=== PATIENT | female | born 1985 | race Asian ===

== ENCOUNTER 2023-11-28 19:55 | Inpatient (IN) | payer OTHER ==
[~2023-11-28] VITALS: Ht 152.4 cm; Wt 71.4 kg
--- NOTE | 2023-11-28 20:00 | NUR ---
2000 G1L0 40.2 WEEKS GEST TO LR4 WITH C/O CONTRACTIONS FOR SEVERAL DAYS BUT BECOMING MORE REGULAR AND STRONGER AT 0700 TODAY. EFM ON. CONTRACTION PATTERN IRREGULAR WITH 120 SECOND CONTRACTION NOTED EVERY 15 WITH 70 SECOND LESS INTENSE CONTRACTIONS NOTED IN BETWEEN THE 120 SECOND CONTRACTIONS AND THEN SM 20 SECOND CONTRACTIONS NOTED IN BETWEEN THOSE. SVE VERY POSTERIOR AND PRESENTING PART HIGH AND NOT ENGAGED /HIGH. BOW INTACT. PT UNDERSTANDS SOME [place] AND SPEAKS VERY LITTLE. UNDERSTANDS ENSLISH AND INTERPRETS FOR PT. ADM ASSESSMENT COMPLETED.
[2023-11-28] MEDS ORDERED: LR 1,000 ML IV PRN (20:15)
[2023-11-28 20:20] VITALS: BP 139/91; PULSE 93; TEMP 98.1
[2023-11-28] MEDS ORDERED: PRENATA1 CTB PO (20:54)
[2023-11-28 21:25] VITALS: BP 117/86; PULSE 90
--- NOTE | 2023-11-28 21:30 | NUR ---
2129 REPEAT SVE WITH /HIGH. CONTRACTION PATTERN REMAINS SAME 2139 DR LISA NOTIFIED AND ORDER RECEIVED
[2023-11-28 22:00] VITALS: BP 130/89; PULSE 93
[2023-11-28] MEDS ORDERED: LR & Oxytocin 500 ML IV SCH (22:00)
[2023-11-28] MEDS ORDERED: LR 1,000 ML IV SCH (22:00)
--- NOTE | 2023-11-28 22:00 | NUR ---
2200 BLOOD SUGAR 95 2220 IV STARTED IN RIGHT HAND.
[2023-11-28 22:35] LABS: BASO % 0.3 % (0.0-2.0); EOS # 0.1 K/mm3 (0.0-0.7); EOS % 0.7 % (0.0-4.0); GRAN # 8.4 K/mm3 (1.4-6.5); GRAN % 76.5 % (42.2-75.2); HEMATOCRIT 40.6 % (37.0-47.0); HEMOGLOBIN 13.5 g/dl (12.5-16.0); LYMPH # 1.7 K/mm3 (1.2-3.4); LYMPH % 15.4 % (20.0-51.0); MEAN CELL VOLUME 91 fl (80.0-100.0); MEAN CORPUSCULAR HEMOGLOBIN 30 pg (27-31); MEAN CORPUSCULAR HGB CONC 33 g/dl (33.0-37.0); MEAN PLATELET VOLUME 11.4 fl (7.4-10.4); MONO # 0.7 K/mm3 (0.1-0.6); MONO % 6.1 % (1.7-9.3); PLATELET COUNT 204 K/mm3 (130-400); RED BLOOD COUNT 4.47 M/mm3 (4.10-5.30); REDCELL DISTRIBUTION WIDTH-CV 14.6 % (11.5-14.5)
[2023-11-28 22:40] VITALS: BP 127/86; PULSE 83
[2023-11-28 22:54] LABS: BILIRUBIN,TOTAL 0.6 mg/dL (0.2-1.2); CALCIUM 9.8 mg/dL (8.4-10.2); CREATININE, serum 0.65 mg/dL (0.57-1.11); POTASSIUM 4.2 mEq/L (3.5-4.5); TOTAL PROTEIN 7.1 g/dl (6.2-8.1)
[2023-11-28 23:30] VITALS: BP 138/91; PULSE 87
[2023-11-29] VITALS (54 sets, daily range): BP systolic 91–135; BP diastolic 52–92; PULSE 73–111; TEMP 97.3–99.2
--- NOTE | 2023-11-29 | NUR ---
0000 AC DONE = 91. REQUESTING EPIDURAL. [facility]F CALLED
[2023-11-29] MEDS ORDERED: ROPivacaine PF 0.2% 200 ML IV ONE (00:21)
--- NOTE | 2023-11-29 00:30 | NUR ---
0030 SITTING UP FOR EPID PLACEMENT. SEE ANESTHESIA RECORD FOR MORE INFORMATION.
[2023-11-29] MEDS ORDERED: diphenhydrAMINE 50 MG/ML 1 ML VIAL IV PRN (01:00)
[2023-11-29] MEDS ORDERED: Ondansetron 4 MG/2 ML VIAL IV PRN (01:00)
[2023-11-29] MEDS ORDERED: Naloxone 0.4 MG/ML VIAL IV PRN ×2 (01:00→13:45)
[2023-11-29] MEDS ORDERED: diphenhydrAMINE 25 MG CAP PO PRN (01:00)
[2023-11-29] MEDS ORDERED: ePHEDrine 50 MG/10 ML VIAL IV PRN (01:00)
--- NOTE | 2023-11-29 02:00 | NUR ---
BLOOD SUGAR 78. STATES HER BLOOD SUGAR DOES NOT GET BELOW 90 USUALLY. HE STATES SHE IS FEELING VERY HUNGRY AND WANTS TO EAT. I EXPLAINED SHE CAN NOT HAVE ANY FOOD BECAUSE SHE HAS AN EPIDURAL. SHE COULD HAVE SOME JUICE OR POPCICLE. I BROUGHT HER A POPCICLE AND JUICE AND EXPLAINED SHE COULD TRY ONE OF THESE TO SEE IF IT HELPS. PT TOOK A COUPLE OF BITES OF THE POPCICLE AND THEN DRANK THE JUICE. AFTER 15 MINS SHE STATED SHE IS FEELING MUCH BETTER NOW.
--- NOTE | 2023-11-29 02:06 | NUR ---
FHR DECEL FROM BASELINE OF 125 DOWN TO 65 BPM FOR 80 SECS THEN RETURN TO BASELINE OF 135 IWTH ACCELS. PT POSITIONED TO SUPINE, SVE 6/90/-2. BABY HAS COME DOWN INTO THE PELVIS QUICKLY. REPOSITIONED PT TO A LEFT TILT WITH PILLOW PLACED BEHIND HER BACK AND UNDER HER LEGS FOR COMFORT.
--- NOTE | 2023-11-29 07:52 | NUR ---
THIS RN TO BEDSIDE DUE TO EFM TRACING HEART RATE IN THE 70s, EFM ADJUSTED WITH HEART RATE AUDIBLE IN THE 130s. PULSE OX PLACED ON PATIENT. THIS RN REMAINS AT BEDSIDE, FHR DECELERATES, WEDGE ADJUSTED UNDER PATIENT, LR BOLUS.
--- NOTE | 2023-11-29 08:25 | NUR ---
FHR HAIVNG VARIABLE DECELERATIONS, THIS RN TO BEDSIDE TO REPOSITION PATIENT. PATIENT REPOSITIONED TO SEMI FOWLERS.
--- NOTE | 2023-11-29 09:03 | NUR ---
AT BEDSIDE TO ASSESS PATIENT PROGRESS AND AROM. SVE 9/100/+1, AROM AT THIS TIME, FLUID STATUS UNKNOWN DUE TO STATION.
--- NOTE | 2023-11-29 09:04 | NUR ---
FHR DECELRATION INTO THE 60s WITH AT BEDSIDE AFTER AROM. FHR RECOVERS AFTER 80 SECONDS.
--- NOTE | 2023-11-29 09:25 | NUR ---
THIS RN FOR SVE DUE TO RECURRENT DECELERATIONS ON FHR TRACING, SVE 9-10/100/+1. THIS RN REPOSITIONS PATIENT TO WEDGED LEFT.
--- NOTE | 2023-11-29 09:34 | NUR ---
THIS RN TO BEDSIDE TO REPOSITION IN RESPONSE TO FHR DECELERATION INTO THE 70s. PATIENT REPOSITIONED TO SEMI FOWLERS AT THIS TIME.
--- NOTE | 2023-11-29 09:46 | NUR ---
THIS RN TO BEDSIDE TO ADJUST TOCO DUE TO LOSS OF TRACING. THIS RN PALPATES PATIENTS ABDOMEN AND FIND FETUS HAS MOVED TO OPPOSITE SIDE OF ABDOMEN, TOCO ADJUSTED.
--- NOTE | 2023-11-29 10:30 | NUR ---
1015- THIS RN PREPARES TO PUSH WITH PATIENT, CARINA D/C. 1022- PATIENT COACHED TO PUSH WITH CONTRACTION, GOOD PUSHING EFFORT. 1026- PATIENT REQUESTS TO NOT PUSH DUE TO NOT FEELING PRESSURE TO PUSH. 1030- PATIENT REPOSITIONED TO "FLYING COWGIRL" LEFT LATERAL WITH A PEANUT BALL.
--- NOTE | 2023-11-29 10:50 | NUR ---
PATIENT REPOSITIONED TO RIGHT LATERAL "FLYING COWGIRL" WITH PEANUT BALL.
--- NOTE | 2023-11-29 11:06 | NUR ---
1100- THIS RN TO BEDSIDE DUR TO FHR DECELERATION. PATIENT REPOSTIONED TO RIGHT LATERAL. 1103- FHR DECELERATING, THIS RN REPOSITONS PATIENT TO WEDGED RIGHT. 1106- THIS RN BEGINS COACHING PATIENT TO PUSH WITH CONTRACTIONS.
--- NOTE | 2023-11-29 12:00 | NUR ---
PATIENT AND SPOUSE REQUESTING A BREAK FROM PUSHING AND SOME ORANGE JUICE.
--- NOTE | 2023-11-29 12:28 | NUR ---
THIS RN AT BEDSIDE TO RESUME PUSHING WITH PATIENT, PATIENT EXPERIENCING INCREASED PAIN. PATIENT PUSHING ONCE AND REQUESTS TO TAKE A BREAK, THIS RN ASKS PATIENT FOR PERMISSION TO ASSESS STATION, HEAD FOUND AT +2 STATION.
--- NOTE | 2023-11-29 12:58 | NUR ---
1244- THIS RN AT BEDSIDE, FHR DECELERATES AND IS PROLONGED FOR 2 MINUTES. THIS RN DISCONTINUES PITOCIN AT THIS TIME. 1245- IN PATIENTS ROOM FOR DELIVERY. 1250- BEGINS PUSHIGN WITH PATIENT AT THIS TIME. 1254- SPONTANEOUS DELIVERY OF INFANT HEAD AND BODY, NUCHAL CORD x2. 1258- SPONTANEOUS DELIVERY ON PLACENTA, PITOCIN STARTED AT 333mU/HR ORDERED AND PER PROTOCOL.
[2023-11-29] MEDS ORDERED: Magnes Hydrox (MOM) 80 MG/ML 30 ML CUP PO PRN (13:30)
[2023-11-29] MEDS ORDERED: Loratadine 10 MG TAB PO PRN (13:30)
[2023-11-29] MEDS ORDERED: Phenylephrine/Mineral Oil/Petrolatum 57 GM TUBE RC PRN (13:45)
[2023-11-29] MEDS ORDERED: Acetaminophen 500 MG TAB PO SCH (13:45)
[2023-11-29] MEDS ORDERED: Ibuprofen 800 MG TAB PO SCH (13:45)
[2023-11-29] MEDS ORDERED: Mag/Al Hydrox/Simeth Susp 30 ML CUP PO PRN (13:45)
[2023-11-29] MEDS ORDERED: Measles/Mumps/Rubella Virus Vaccine Live w Diluent 0.5 ML VIAL SQ SCH (13:45)
[2023-11-29] MEDS ORDERED: oxyCODONE 5 MG TAB PO PRN (13:45)
[2023-11-29] MEDS ORDERED: Witch Hazel 50% Pads Bulk TUB TP PRN (13:45)
[2023-11-29] MEDS ORDERED: Sennosides/Docusate 8.6-50 MG TAB PO SCH (17:00)
--- NOTE | 2023-11-29 17:15 | NUR ---
PATIENT ASISSTED TO DANGLE WITHOUT DIFFICULTY OR DIZZINESS. PATIENT ASSITED TO STANDING AND IS ABLE TO AMBULATE WITH THIS RN ON STANDBY. PATIENT VOIDS AND IS ASSISTED INTO CLEAN UNDERWEAR AND A GOWN. PATIENT AMBUALTES WITH THIS RN AND SPOUSE TO ROOM 214. PATIENT ORIENTED TO ROOM.
[2023-11-29] MEDS ORDERED: traZODone 50 MG TAB PO PRN (21:00)
[2023-11-30 00:45] VITALS: BP 110/79; PULSE 92; TEMP 99
[2023-11-30 09:00] VITALS: BP 117/75; PULSE 100
[2023-11-30] MEDS ORDERED: MOTRIN 800800 MG/TAB PO (10:13)
[2023-11-30 19:57] VITALS: BP 127/78; PULSE 93; TEMP 99
[2023-12-01 08:15] VITALS: BP 108/68; PULSE 65
== END 2023-12-01 17:30 | disposition home or self-care (01) | DRG 807 ==
LOC: LDRO 19:55 → OB 19:56 → LDR 19:56 → OB 11-29 16:00
PROVIDERS: Obstetrics & Gynecology; ADMIT Obstetrics & Gynecology
PROC: 10E0XZZ Delivery of Products of Conception, External Approach (ICD-10-PCS; principal; 2023-11-29)
PROC: 0KQM0ZZ Repair Perineum Muscle, Open Approach (ICD-10-PCS; 2023-11-29)
DX: O48.0 Post-term pregnancy (principal); Z37.0 Single live birth; O24.420 Gestational diabetes mellitus in childbirth, diet controlled; Z3A.40 40 weeks gestation of pregnancy; O77.0 Labor and delivery complicated by meconium in amniotic fluid; O70.1 Second degree perineal laceration during delivery; O69.81X0 Labor and delivery complicated by cord around neck, without compression, not applicable or unspecified; O99.02 Anemia complicating childbirth; D64.9 Anemia, unspecified
CPT/HCPCS: J2590; J2795; J7120